=== PATIENT | male | born 2000 | race African-American/Black ===

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

== ENCOUNTER 2023-09-11 15:39 | Emergency (ER) | payer BC, OTHER ==
[~2023-09-11] VITALS: Ht 175.3 cm; Wt 83.9 kg
[2023-09-11 15:45] VITALS: BP_SYST 153; PULSE 80; RESP 15; TEMP 98; O2SAT 98
[2023-09-11] MEDS: LORazepam 1 MG TABLET PO ONE (16:12)
[2023-09-11 16:47] LABS: ALANINE AMINOTRANSFERASE 35 U/L (12-78); ALBUMIN 3.7 g/dL (3.4-4.8); ANION GAP 7 (5-15); ASPARTATE AMINOTRANSFERASE 17 U/L (10-37); CALCIUM 9.2 mg/dL (8.4-11.0); CARBON DIOXIDE 28 mmol/L (23-29); CHLORIDE 104 mmol/L (98-107); CREATININE 1.23 mg/dL (0.55-1.30); GFR AFRICAN AMERICAN 96 mL/min (>90); GLUCOSE 126 mg/dL (74-106); POTASSIUM 3.6 mmol/L (3.5-5.1); SODIUM SERUM 139 mmol/L (136-145); TOTAL BILIRUBIN 0.4 mg/dL (0.0-1.0); TOTAL PROTEIN, SERUM 7.2 g/dL (6.4-8.3); UREA NITROGEN, BLOOD 16 mg/dL (8-21)
[2023-09-11 16:49] LABS: BILIRUBIN,DIRECT 0.1 mg/dL (0.0-0.3); LIPASE 46 U/L (16-77)
[2023-09-11 16:52] LABS: BASOPHILS % (AUTO) 0.5 % (0.0-2.0); EOSINOPHILS # (AUTO) 0.1 K/uL (0.0-0.4); EOSINOPHILS % (AUTO) 1.9 % (0.0-4.0); HEMATOCRIT 40.8 % (36-54); HEMOGLOBIN 13.6 g/dL (14.0-18.0); LYMPHOCYTES # (AUTO) 1.1 K/uL (1.0-5.5); LYMPHOCYTES % (AUTO) 20.5 % (20.5-51.5); MEAN CORPUSCULAR HEMOGLOBIN 27 pg (27-31); MEAN CORPUSCULAR HGB CONC 33 % (32-36); MEAN CORPUSCULAR VOLUME 81 fL (79.0-98.0); MONOCYTES # (AUTO) 0.4 K/uL (0.0-1.0); MONOCYTES % (AUTO) 6.9 % (1.7-9.3); NEUTROPHILS # (AUTO) 3.9 K/uL (1.8-7.7); NEUTROPHILS % (AUTO) 70.2 % (40.0-70.0); PLATELET COUNT (AUTO) 327 K/uL (130-430); RED BLOOD CELL COUNT(AUTO) 5.03 MIL/uL (4.2-6.2); RED CELL DISTRIBUTION WIDTH 14.2 % (9.0-15.0); WHITE BLOOD COUNT (AUTO) 5.6 K/uL (4.8-10.8)
[2023-09-11 16:57] LABS: GFR NON AFRICAN-AMERICAN 79 mL/min (>90)
[2023-09-11] MEDS ORDERED: LORA-259 PO (17:28)
[2023-09-11 18:35] VITALS: BP_SYST 136; PULSE 84; RESP 17; TEMP 98.1; O2SAT 98
== END 2023-09-11 18:35 | disposition home or self-care (01) ==
LOC: SED 15:39
DX: F41.0 Panic disorder [episodic paroxysmal anxiety] (principal); F32.A Depression, unspecified; Z98.890 Other specified postprocedural states; Z79.899 Other long term (current) drug therapy
CPT/HCPCS: 36415; 80048; 80076; 83690; 83735; 84484; 85025; 93005; 99284

== ENCOUNTER 2023-09-15 10:10 | Emergency (ER) | payer OTHER ==
[~2023-09-15] VITALS: Ht 177.8 cm; Wt 88.0 kg
[~2023-09-15 10:10] MED LIST: LORA-259 PO
[2023-09-15 10:16] VITALS: BP_SYST 137; PULSE 94; RESP 20; TEMP 100.2; O2SAT 99
[2023-09-15] MEDS: IPRATROPIUM/ALBUTEROL SULFATE 3 ML AMPUL.NEB (DUONEB) INH ONE (10:36)
[2023-09-15 10:43] LABS: BASOPHILS % (AUTO) 0.3 % (0.0-2.0); EOSINOPHILS # (AUTO) 0.1 K/uL (0.0-0.4); EOSINOPHILS % (AUTO) 0.4 % (0.0-4.0); HEMATOCRIT 41.7 % (36-54); HEMOGLOBIN 13.9 g/dL (14.0-18.0); LYMPHOCYTES # (AUTO) 1.3 K/uL (1.0-5.5); LYMPHOCYTES % (AUTO) 9.3 % (20.5-51.5); MEAN CORPUSCULAR HEMOGLOBIN 27 pg (27-31); MEAN CORPUSCULAR HGB CONC 33 % (32-36); MEAN CORPUSCULAR VOLUME 81 fL (79.0-98.0); MONOCYTES % (AUTO) 7.2 % (1.7-9.3); NEUTROPHILS # (AUTO) 11.2 K/uL (1.8-7.7); NEUTROPHILS % (AUTO) 82.8 % (40.0-70.0); PLATELET COUNT (AUTO) 315 K/uL (130-430); RED BLOOD CELL COUNT(AUTO) 5.14 MIL/uL (4.2-6.2); RED CELL DISTRIBUTION WIDTH 14.5 % (9.0-15.0); WHITE BLOOD COUNT (AUTO) 13.5 K/uL (4.8-10.8)
[2023-09-15] MEDS: KETOROLAC TROMETHAMINE 30 MG VIAL IM ONE (10:45)
[2023-09-15] MEDS: predniSONE 20 MG TABLET PO ONE (10:46)
[2023-09-15] MEDS: ACETAMINOPHEN 500 MG TABLET PO ONE (10:46)
[2023-09-15 11:00] LABS: ALANINE AMINOTRANSFERASE 38 U/L (12-78); ALBUMIN 4.3 g/dL (3.4-4.8); ANION GAP 12 (5-15); ASPARTATE AMINOTRANSFERASE 36 U/L (10-37); CARBON DIOXIDE 24 mmol/L (23-29); CHLORIDE 100 mmol/L (98-107); CREATININE 1.57 mg/dL (0.55-1.30); GFR AFRICAN AMERICAN 72 mL/min (>90); GLUCOSE 88 mg/dL (74-106); POTASSIUM 3.6 mmol/L (3.5-5.1); SODIUM SERUM 136 mmol/L (136-145); TOTAL BILIRUBIN 0.6 mg/dL (0.0-1.0); TOTAL PROTEIN, SERUM 8.4 g/dL (6.4-8.3); UREA NITROGEN, BLOOD 15 mg/dL (8-21)
[2023-09-15] MEDS ORDERED: iohexoL 350 mgI/mL, 100 ML INFUS..BTL IV ONE (11:00)
[2023-09-15 11:05] LABS: GFR NON AFRICAN-AMERICAN 60 mL/min (>90)
[2023-09-15] MEDS: ONDANSETRON HCL 4 MG/2 ML VIAL IVP ONE (11:20)
[2023-09-15 12:04] LABS: BARBITURATE, URINE NEGATIVE (NEG <=200); BENZODIAZEPINE, URINE NEGATIVE (NEG <=150); CANNABINOID, URINE NEGATIVE (NEG <=50); COCAINE, URINE NEGATIVE (NEG <=150); METHAMPHETAMINES SCREEN,URINE NEGATIVE (NEG <=500); OPIATE, URINE NEGATIVE (NEG <=100); PHENCYCLIDINE SCREEN,URINE NEGATIVE (NEG <=25); UR TRICYCLIC ANTIDEPRESSANTS NEGATIVE (NEG <=300); URINE AMPHETAMINE NEGATIVE (NEG <=500); URINE METHADONE NEGATIVE (NEG <=200); URINE OXYCODONE SCREEN NEGATIVE (NEG <=100)
[2023-09-15] MEDS: NACL 0.9% 1,000 ML IV ONE (12:18)
[2023-09-15] MEDS ORDERED: ZIT250 PO (12:49)
[2023-09-15] MEDS ORDERED: AMOX500C2 PO (12:49)
[2023-09-15] MEDS: AZITHROMYCIN 250 MG TABLET PO ONE (13:04)
[2023-09-15 13:14] VITALS: BP_SYST 125; PULSE 94; RESP 18; TEMP 99.5; O2SAT 97
== END 2023-09-15 13:14 | disposition home or self-care (01) ==
LOC: SED 10:10
DX: J18.9 Pneumonia, unspecified organism (principal); Z20.822 Contact with and (suspected) exposure to COVID-19; F32.A Depression, unspecified; J45.909 Unspecified asthma, uncomplicated; F41.9 Anxiety disorder, unspecified; Z79.899 Other long term (current) drug therapy; Z79.2 Long term (current) use of antibiotics
CPT/HCPCS: 99285; 96374; 71275; 71045; 96361; 87426; 80307; 80053; 85025; 85379; 84484; 36415; 93005; 94640; 96372; Q9967; J7512; J1885; J7030; Q0144; 94760